=== PATIENT | female | born 1975 | race Caucasian/White ===

== ENCOUNTER 2021-06-12 19:06 | Emergency (ER) | payer OTHER, SELFPAY ==
--- NOTE | 2021-06-12 19:14 | ED.URI ---
HPI - URI/Sore Throat General Chief Complaint: Upper Respiratory Infection Stated Complaint: Congestion Time Seen by Provider: 06/12/21 19:18 Source: patient, RN notes reviewed and old records reviewed Mode of arrival: ambulatory Limitations: no limitations History of Present Illness HPI Narrative: 46-year-old presents to the [facility] with complaints of congestion and mucus in the back of her throat. She states that she is being treated for an STD currently. Is currently on oral medications and a shot Patient states that she is intoxicated. Patient states that she is recently been treated for a vaginal STD, was concerned that it is also in her throat and wanted to be tested and treated MD elicited complaint: nasal congestion Related Data Home Medications Medication Instructions Recorded Confirmed benztropine 1 mg PO DAILY 06/12/21 06/12/21 haloperidol 5 mg PO DAILY 06/12/21 06/12/21 hydroxyzine pamoate 25 mg PO DAILY 06/12/21 06/12/21 lisinopril 10 mg PO DAILY 06/12/21 06/12/21 Allergies Allergy/AdvReac Type Severity Reaction Status Date / Time No Known Allergies Allergy Verified 06/12/21 19:32 Review of Systems Review of Systems: All systems reviewed & are unremarkable except as noted in HPI and below Constitutional: Constitutional: Reports no additional constitutional complaints, Denies chills and Denies fever(s) Eyes: Eyes: Reports no additional eye complaints ENT: Reports system reviewed and no additional complaints, except as documented Cardiovascular: Cardiovascular: Reports no additional cardiovascular complaints Respiratory: Respiratory: Reports no additional respiratory complaints, Denies cough, Denies dyspnea and Denies wheezing Gastrointestinal: Gastrointestinal: Reports no additional gastrointestinal complaints, Denies abdominal pain, Denies diarrhea, Denies nausea and Denies vomiting Musculoskeletal: Musculoskeletal: Reports no additional musculoskeletal complaints Integumentary/Breasts: Skin/Breast: Reports system reviewed and no additional complaints, except as docu Neurologic: Reports system reviewed and no additional complaints, except as documented Psychiatric: Psychiatric: Reports no additional psychiatric complaints Allergic/Immunologic: Allergic/Immunologic: Reports no additional allergic/immunologic complaints [facility] Surgical History Surgical History (Updated 06/12/21 @ 19:35 by Kassandra Trejo) History of Social History Social History (Updated 06/12/21 @ 19:36 by Kassandra Trejo) Smoking status: Current every day smoker Tobacco type: cigarettes Alcohol intake: current Substance use: current Gender identity (if verbalized by the patient): Female Comments At the time of my signature, I reviewed and agree with the nursing past medical, surgical, social, and family history. There is no relevant family history pertinent to the patient complaint. Exam Const: General: alert and ill appearing chronically Nutritional Appearance: obese Orientation/consciousness: patient oriented x3 Limitations: other limitations (Intoxicated) HENMT: Head: normal to inspection Ears: external ears normal Other: Excessive cerumen right ear Eyes: Pupils: Equal, round and reactive pupils present Neck: Neck: normal visual inspection, no lymphadenopathy and no meningeal signs Chest: Chest palpation & inspection: normal inspection of the chest Resp: Effort & Inspection: normal respiratory effort Auscultation: diminished lung sounds bilateral throughout Cardio: Rate: tachycardic Back/Spine/Pelvis: Back: no CVA tenderness Skin: General skin exam: normal color and no jaundice Neuro: General: patient oriented x3, moves all extremities, no meningeal signs and no focal motor deficits Speech: normal speech Gait exam (Neuro): Normal gait present Extrem: General: normal to inspection Psych: Appearance: grossly normal and well kempt Mental Status: mental status grossly no
[2021-06-12 19:21] VITALS: BP 152/113; PULSE 112; RESP 18; TEMP 35.6; O2SAT 99
== END 2021-06-12 19:37 | disposition left against medical advice (07) ==
PROVIDERS: Emergency Provider Nurse Practitioner
DX: R09.82 Postnasal drip (principal); H61.21 Impacted cerumen, right ear; F17.200 Nicotine dependence, unspecified, uncomplicated
CPT/HCPCS: 87081; 87880; 99213; G0463